=== PATIENT | male | born 1985 | race Caucasian/White ===

== ENCOUNTER 2018-11-12 19:22 | Emergency (ER) | payer BC ==
[2018-11-12] MEDS ORDERED: ONDANSETRON 4 MG/2 ML VIAL ONE (19:58)
[2018-11-12] MEDS ORDERED: NA CHLORIDE 0.9% 1,000 ML ONE (19:58)
[2018-11-12 20:07] LABS: Absolute Lymphocytes (CBC) 1.9 K/uL (0.7-4.9); Absolute Monocytes 0.5 K/uL (0.1-1.3); Absolute Neutrophil 5.2 K/uL (1.8-8.0); Basophils % 0.5 % (0-1.3); Eosinophils % 1.6 % (0-4.4); Hematocrit 45.7 % (39.6-49.0); Lymphocytes % 24.4 % (15.3-44.8); MPV 8.6 fL (7.6-11.3); Monocytes % 6.3 % (3.3-12.3); RBC Red Blood Cell Count 5.18 M/uL (4.33-5.43)
[2018-11-12 20:30] LABS: Albumin 4.3 g/dL (3.4-5.0); Bilirubin Direct 0.2 mg/dL (0-0.2); Bilirubin Total 0.7 mg/dL (0.2-1.0); Potassium 3.9 mmol/L (3.5-5.1); Protein, Total 7.8 g/dL (6.4-8.2)
[2018-11-12] MEDS ORDERED: PROMETHAZINE 25 MG/ML VIAL ONE (20:42)
--- NOTE | 2018-11-12 21:12 | RAD REPORT ---
EXAM DESCRIPTION: CT - Abdomen Pelvis W Contrast - 11/12/2018 8:52 pm CLINICAL HISTORY: Abdominal pain, vomiting blood, history of ulcers COMPARISON: None. TECHNIQUE: Biphasic, helical CT imaging of the abdomen and pelvis was performed following 100 ml non -ionic IV contrast. No oral contrast administered. All CT scans are performed using dose optimization technique as appropriate and may include automated exposure control or mA/KV adjustment according to patient size. FINDINGS: No suspicious findings in the lung bases. Very small Bochdalek's hernia. The liver, spleen, and pancreas show no suspicious findings. Gallbladder and biliary tree are also wi thout suspicious finding. Symmetric renal function is seen with no hydronephrosis or suspicious renal mass. No pyelonephritis o r acute parenchymal process. No bladder abnormalities. No adrenal abnormalities. No dilated bowel loops or bowel wall thickening. No free air, free fluid or inflammatory stranding. No hernia, mass or bulky lymphadenopathy. No suspicious bony findings. IMPRESSION: Contrast enhanced CT abdomen and pelvis showing no significant or suspicious finding.
--- NOTE | 2018-11-12 22:44 | ER ---
Nurse's Notes [facility] Name: Kennedy Laureano Age: 33 yrs Sex: Male : 1985 Arrival Date: 11/12/2018 Time: 19:25 Bed 15 Private MD: Diagnosis: Vomiting Presentation: 11/12 19:30 Presenting complaint: Patient states: About 3 hrs I vomited blood and ever since it has jb4 been coming and going only now it is more black and brown. 19:30 Transition of care: patient was not received from another setting of care. Onset of jb4 symptoms was November 12, 2018. Risk Assessment: Do you want to hurt yourself or someone else? Patient reports no desire to harm self or others. Initial Sepsis Screen: Does the patient meet any 2 criteria? No. Patient's initial sepsis screen is negative. Does the patient have a suspected source of infection? No. Patient's initial sepsis screen is negative. Care prior to arrival: None. 19:30 Method Of Arrival: Ambulatory jb4 19:30 Acuity: AB 3 jb4 Historical: - Allergies: 19:30 Sulfa (Sulfonamide Antibiotics); jb4 - Home Meds: 19:30 levothyroxine oral [Active]; jb4 - PMHx: 19:30 Ulcers; Hernia; mesenteric cyst; Hypothyroidism; jb4 - PSHx: 19:30 abdominal; jb4 - Immunization history:: Adult Immunizations up to date, Last tetanus immunization: up to date Flu vaccine is up to date. - Social history:: Smoking status: Patient/guardian denies using tobacco, Patient/guardian denies using alcohol. - Ebola Screening: : No symptoms or risks identified at this time. Screenin:30 Abuse screen: Denies threats or abuse. Nutritional screening: No deficits noted. jb4 Tuberculosis screening: No symptoms or risk factors identified. Fall Risk IV access (20 points). Total Sanders Fall Scale indicates No Risk (0-24 pts). Assessment: 19:30 General: Appears in no apparent distress. uncomfortable, Behavior is calm, cooperative, jb4 appropriate for age. Pain: Denies pain. Neuro: Level of Consciousness is awake, alert, obeys commands, Oriented to person, place, time, situation. Cardiovascular: Patient's skin is warm and dry. Respiratory: Airway is patent Respiratory effort is even, unlabored, Respiratory pattern is regular, symmetrical. GI: Abdomen is flat, non-distended, Reports nausea, vomiting, Patient currently denies abdominal pain. : No signs and/or symptoms were reported regarding the genitourinary system. EENT: No signs and/or symptoms were reported regarding the EENT system. Derm: Skin is intact, Skin is pink, warm \T\ dry. Musculoskeletal: Circulation, motion, and sensation intact. 19:55 Reassessment: Pt still vomiting, provider notified, no new orders at this time. jb4 20:20 Reassessment: No changes from previously documented assessment. Patient and/or family jb4 updated on plan of care and expected duration. Pain level reassessed. Patient is alert, oriented x 3, equal unlabored respirations, skin warm/dry/pink. Pt is reporting increased nausea and vomiting, provider notified, see [facility] for orders. 20:40 Reassessment: Pt to CT. jb4 21:00 Reassessment: Patient appears in no apparent distress at this time. Patient and/or jb4 family updated on plan of care and expected duration. Pain level reassessed. Patient is alert, oriented x 3, equal unlabored respirations, skin warm/dry/pink. Pt back from Ct. 21:48 Reassessment: Patient appears in no apparent distress at this time. No changes from jb4 previously documented assessment. Patient and/or family updated on plan of care and expected duration. Pain level reassessed. Patient states feeling better. 23:08 Reassessment: Patient appears in no apparent distress at this time. Patient and/or jb4 family updated on plan of care and expected duration. Pain level reassessed. Patient is alert, oriented x 3, equal unlabored respirations, skin warm/dry/pink. Vital Signs: 19:30 BP 127 / 87; Pulse 88; Resp 16; Temp 98.1(O); Pulse Ox 99% on R/A; Weight 70.31 kg (R); jb4 Height 5 ft. 7 in. (170.18 cm) (R); Pain 0/10; 21:00 BP 117 / 73; Pulse 88; Resp 16; Pulse Ox 100% on R/A; jb4 22:00 BP 111 / 72; Pulse 86; Resp 16; Pulse Ox 100% on R/A; jb4 22:45 BP 108 / 87; Pulse 77; Resp 16; Pulse Ox 100% on R/A; jb4 19:30 Body Mass Index 24.28 (70.31 kg, 170.18 cm) jb4 ED Course: 19:25 Patient arrived in ED. es 19:30 Arm band placed on left wrist. jb4 19:30 Patient has correct armband on for positive identification. Placed in gown. Bed in low jb4 position. Call light in reach. Side rails up X 1. Pulse ox on. NIBP on. 19:31 Aries Acevedo NP is PHCP. pm1 19:32 Duran Glover MD is Attending Physician. pm1 19:35 Initial lab(s) drawn, by me, sent to lab. Inserted saline lock: 20 gauge in right jb4 antecubital area, using aseptic technique. Blood collected. 19:44 Hamzah Marks, RN is Primary Nurse. jb4 20:01 Triage completed. jb4 20:52 CT Abd/Pelvis - W/Contrast: IV contrast only In Process Unspecified. EDMS 22:45 No provider procedures requiring assistance completed. IV discontinued, intact, jb4 bleeding controlled. Administered Medications: 19:48 Drug: NS 0.9% 1000 ml Route: IV; Rate: 1000 ml; Site: right antecubital; jb4 20:35 Follow up: Response: No adverse reaction; IV Status: Completed infusion; IV Intake: jb4 1000ml 19:50 Drug: Zofran 4 mg Route: IVP; Site: right antecubital; jb4 20:41 Follow up: Response: Nausea unchanged jb4 20:35 Drug: Phenergan 12.5 mg Route: IVP; Site: right antecubital; jb4 23:10 Follow up: Response: No adverse reaction; Nausea is decreased; Vomiting decreased jb4 22:57 Drug: Pepcid 20 mg Route: IVP; Site: right antecubital; jb4 23:10 Follow up: Response: No adverse reaction; Medication administered at discharge. jb4 Intake: 20:35 IV: 1000ml; Total: 1000ml. jb4 Outcome: 22:43 Discharge ordered by . pm1 22:45 Discharged to home ambulatory, with family. jb4 22:45 Condition: stable 22:45 Discharge instructions given to patient, family, Instructed on discharge instructions, follow up and referral plans. medication usage, Demonstrated understanding of instructions, follow-up care, medications, Prescriptions given X 2. 23:10 Patient left the ED. jb4 Signatures: Dispatcher [employer] Usha Macdonald Patrick, MANAGER LEAN MANAGER LEAN pm1 Hamzah Marks, RN RN jb4
--- NOTE | 2018-11-12 22:44 | EDPHYS ---
Physician Documentation [facility] Name: Kennedy Laureano Age: 33 yrs Sex: Male : 1985 Arrival Date: 11/12/2018 Time: 19:25 Bed 15 Private MD: ED Physician Duran Glover HPI: 11/12 20:00 This 33 yrs old Male presents to ER via Ambulatory with complaints of pm1 Nausea/Vomiting, Dizziness. 20:00 The patient presents to the emergency department with nausea, vomiting. Onset: The pm1 symptoms/episode began/occurred today. Possible causes: bad food exposure, shrimp. The symptoms are aggravated by nothing. The symptoms are alleviated by nothing. Associated signs and symptoms: Pertinent negatives: abdominal pain, constipation, diarrhea, dysuria, fever. Severity of symptoms: in the emergency department the symptoms are unchanged Pain is currently a 0 / 10. The patient has not experienced similar symptoms in the past. The patient has not recently seen a physician. Historical: - Allergies: 19:30 Sulfa (Sulfonamide Antibiotics); jb4 - Home Meds: 19:30 levothyroxine oral [Active]; jb4 - PMHx: 19:30 Ulcers; Hernia; mesenteric cyst; Hypothyroidism; jb4 - PSHx: 19:30 abdominal; jb4 - Immunization history:: Adult Immunizations up to date, Last tetanus immunization: up to date Flu vaccine is up to date. - Social history:: Smoking status: Patient/guardian denies using tobacco, Patient/guardian denies using alcohol. - Ebola Screening: : No symptoms or risks identified at this time. ROS: 20:00 Constitutional: Negative for fever, chills, and weight loss, Eyes: Negative for injury, pm1 pain, redness, and discharge, ENT: Negative for injury, pain, and discharge, Neck: Negative for injury, pain, and swelling, Cardiovascular: Negative for chest pain, palpitations, and edema, Respiratory: Negative for shortness of breath, cough, wheezing, and pleuritic chest pain. 20:00 Back: Negative for injury and pain, : Negative for injury, bleeding, discharge, and swelling, MS/Extremity: Negative for injury and deformity, Skin: Negative for injury, rash, and discoloration, Neuro: Negative for headache, weakness, numbness, tingling, and seizure. 20:00 Abdomen/GI: Positive for nausea and vomiting, Negative for abdominal pain, diarrhea. Exam: 20:00 Constitutional: This is a well developed, well nourished patient who is awake, alert, pm1 and in no acute distress. Head/Face: Normocephalic, atraumatic. Eyes: Pupils equal round and reactive to light, extra-ocular motions intact. Lids and lashes normal. Conjunctiva and sclera are non-icteric and not injected. Cornea within normal limits. Periorbital areas with no swelling, redness, or edema. ENT: Nares patent. No nasal discharge, no septal abnormalities noted. Tympanic membranes are normal and external auditory canals are clear. Oropharynx with no redness, swelling, or masses, exudates, or evidence of obstruction, uvula midline. Mucous membranes moist. Neck: Trachea midline, no thyromegaly or masses palpated, and no cervical lymphadenopathy. Supple, full range of motion without nuchal rigidity, or vertebral point tenderness. No Meningismus. Chest/axilla: Normal chest wall appearance and motion. Nontender with no deformity. No lesions are appreciated. Cardiovascular: Regular rate and rhythm with a normal S1 and S2. No gallops, murmurs, or rubs. Normal PMI, no JVD. No pulse deficits. Respiratory: Lungs have equal breath sounds bilaterally, clear to auscultation and percussion. No rales, rhonchi or wheezes noted. No increased work of breathing, no retractions or nasal flaring. Abdomen/GI: Soft, non-tender, with normal bowel sounds. No distension or tympany. No guarding or rebound. No evidence of tenderness throughout. Back: No spinal tenderness. No costovertebral tenderness. Full range of motion. Skin: Warm, dry with normal turgor. Normal color with no rashes, no lesions, and no evidence of cellulitis. MS/ Extremity: Pulses equal, no cyanosis. Neurovascular intact. Full, normal range of motion. 20:00 Neuro: Orientation: is normal, Motor: moves all fours, Gait: is steady, at a normal pace, without difficulty. Vital Signs: 19:30 BP 127 / 87; Pulse 88; Resp 16; Temp 98.1(O); Pulse Ox 99% on R/A; Weight 70.31 kg (R); jb4 Height 5 ft. 7 in. (170.18 cm) (R); Pain 0/10; 21:00 BP 117 / 73; Pulse 88; Resp 16; Pulse Ox 100% on R/A; jb4 22:00 BP 111 / 72; Pulse 86; Resp 16; Pulse Ox 100% on R/A; jb4 22:45 BP 108 / 87; Pulse 77; Resp 16; Pulse Ox 100% on R/A; jb4 19:30 Body Mass Index 24.28 (70.31 kg, 170.18 cm) jb4 MDM: 19:35 Patient medically screened. pm1 22:25 Data reviewed: vital signs. Data interpreted: Pulse oximetry: on room air is 100 %. pm1 Interpretation: normal. 22:25 Counseling: I had a detailed discussion with the patient and/or guardian regarding: the pm1 historical points, exam findings, and any diagnostic results supporting the discharge/admit diagnosis, lab results, radiology results. 11/12 19:41 Order name: Basic Metabolic Panel; Complete Time: 20:30 pm1 11/12 19:41 Order name: CBC with Diff; Complete Time: 20:26 pm1 11/12 19:41 Order name: Creatinine for Radiology; Complete Time: 20:26 pm1 11/12 19:41 Order name: Hepatic Function; Complete Time: 20:30 pm1 11/12 19:41 Order name: Lipase; Complete Time: 20:30 pm1 11/12 19:55 Order name: CT Abd/Pelvis - W/Contrast: IV contrast only; Complete Time: 21:43 pm1 11/12 19:41 Order name: IV Saline Lock; Complete Time: 20:12 pm1 11/12 19:41 Order name: Labs collected and sent; Complete Time: 20:12 pm1 Administered Medications: 19:48 Drug: NS 0.9% 1000 ml Route: IV; Rate: 1000 ml; Site: right antecubital; jb4 20:35 Follow up: Response: No adverse reaction; IV Status: Completed infusion; IV Intake: jb4 1000ml 19:50 Drug: Zofran 4 mg Route: IVP; Site: right antecubital; jb4 20:41 Follow up: Response: Nausea unchanged jb4 20:35 Drug: Phenergan 12.5 mg Route: IVP; Site: right antecubital; jb4 23:10 Follow up: Response: No adverse reaction; Nausea is decreased; Vomiting decreased jb4 22:57 Drug: Pepcid 20 mg Route: IVP; Site: right antecubital; jb4 23:10 Follow up: Response: No adverse reaction; Medication administered at discharge. jb4 Disposition: 11/13 19:28 Co-signature as Attending Physician, Duran Glover MD. Disposition: 11/12/18 22:43 Discharged to Home. Impression: Vomiting. - Condition is Stable. - Discharge Instructions: Clear Liquid Diet, Adult, Food Poisoning, Nausea and Vomiting, Adult. - Prescriptions for Zofran 4 mg Oral Tablet - take 1 tablet by ORAL route every 12 hours As needed; 20 tablet. promethazine 25 mg Oral Tablet - take 1 tablet by ORAL route every 6 hours As needed; 20 tablet. - Medication Reconciliation Form, Thank You Letter, Antibiotic Education, Prescription Opioid Use form. - Follow up: Emergency Department; When: As needed; Reason: Worsening of condition. Follow up: Private Physician; Reason: Recheck today's complaints, Continuance of care, Re-evaluation by your physician. - Problem is new. - Symptoms have improved. Signatures: Dispatcher [employer] EDMS Aries Acevedo NP EXTERNAL RELATIONS DIRECTOR pm1 Hamzah Marks RN RN jb4 Duran Glover MD MD Corrections: (The following items were deleted from the chart) 11/12 23:10 22:43 11/12/2018 22:43 Discharged to Home. Impression: Vomiting. Condition is Stable. jb4 Forms are Medication Reconciliation Form, Thank You Letter, Antibiotic Education, Prescription Opioid Use. Follow up: Emergency Department; When: As needed; Reason: Worsening of condition. Follow up: Private Physician; Reason: Recheck today's complaints, Continuance of care, Re-evaluation by your physician. Problem is new. Symptoms have improved. pm1
[2018-11-12] MEDS ORDERED: FAMOTIDINE 20 MG/2 ML VIAL IV ONE (23:04)
== END 2018-11-12 23:10 | disposition home or self-care (01) ==
LOC: ER 19:22
DX: R11.10 Vomiting, unspecified (principal); E03.9 Hypothyroidism, unspecified; Z88.2 Allergy status to sulfonamides
CPT/HCPCS: 36415; 74177; 80048; 80076; 83690; 85025; 96361; 96374; 96375; 99284; J2405; J2550; J7030; Q9967